=== PATIENT | male | born 1995 | race Caucasian/White ===

== ENCOUNTER 2018-08-10 16:49 | Outpatient (REF) | payer MEDICARE, SELFPAY ==
[2018-08-10 22:00] LABS: Abs Immature Grans 0.04 k/cumm (0.0-0.09); Absolute Basophil Count 0.03 k/cumm (0.0-0.2); Absolute Eosinophil Count 0.16 k/cumm (0.0-0.7); Absolute Lymphocyte Count 2.64 k/cumm (1.2-3.4); Absolute Monocyte Count 0.82 k/cumm (0.11-0.7); Absolute Neutrophil Count 5.47 k/cumm (1.2-6.7); Basophils % 0.3; Eosinophils % 1.7; HCT 45.8 % (40.0-50.0); HGB 16.1 g/dL (13.5-17.5); Immature Grans % 0.4; Lymphocytes % 28.8; Mean Corp. HGB Concentration 35.2 g/dL (32.0-36.0); Mean Corpuscular Hemoglobin 32.7 pg (27.0-33.0); Mean Corpuscular Volume 92.9 fL (80-95); Mean Platelet Volume 10.4 fL (8.0-11.0); Neutrophils % 59.8; Platelet Count 275 x1000/uL (130-400); RBC 4.93 m/cumm (4.50-6.00); RBC Distribution Width 12.4 % (11.8-14.1); White Blood Cell Count 9.16 k/cumm (4.4-10.8)
[2018-08-10 22:54] LABS: ALT 21 U/L (12-78); AST 19 U/L (15-37); Albumin 4.5 g/dL (3.4-5.0); Alkaline Phosphatase 98 U/L (46-116); Anion Gap 12.7 mmol/L (3-11); BUN 8 mg/dL (7-18); Bilirubin, Total 0.4 mg/dL (0.2-1.0); CO2 27.3 mmol/L (21.0-32.0); CREATININE 1.06 mg/dL (0.70-1.30); Calcium 9.4 mg/dL (8.5-10.1); Chloride 100 mmol/L (98-107); Cholesterol 166 mg/dL (50-200); Glucose 91 mg/dL (70-100); HDL Cholesterol 32 mg/dL (40-60); LDL CHOLESTEROL 100 mg/dL (<100); Potassium 3.8 mmol/L (3.5-5.1); Sodium 140 mmol/L (136-145); Total Protein 8.2 g/dL (6.4-8.2); Triglyceride 295 mg/dL (30-150)
[2018-08-10 23:03] LABS: Lipase 114 U/L (73-393)
== END 2018-08-10 17:09 ==
LOC: NCHCN 16:49
PROVIDERS: PCP Specialist/Technologist Athletic Trainer; Visit Provider Specialist/Technologist Athletic Trainer
DX: R10.11 Right upper quadrant pain (principal); E78.89 Other lipoprotein metabolism disorders; Z68.27 Body mass index [BMI] 27.0-27.9, adult
CPT/HCPCS: 80053; 80061; 83690; 83721; 85025

== ENCOUNTER 2018-08-17 07:41 | Outpatient (CLI) | payer MEDICARE, OTHER, SELFPAY ==
--- NOTE | 2018-08-17 08:05 | DI.US_ITS ---
SYMPTOMS/DIAGNOSIS: RIGHT UPPER QUADRANT PAIN, R10.11 ABDOMINAL ULTRASOUND: The aorta is normal. The vena cava is normal. The liver is top limits of normal in size. The gallbladder is normal. There are no stones or ductal dilatation. The pancreas is poorly visualized. The spleen measures 12 cm in maximal diameter. The right kidney measures 10 x 4.9 x 4.8 cm, the left kidney 11.8 x 5.4 x 5.6 cm. There is no evidence of abdominal free fluid. SUMMARY: The liver and spleen are somewhat enlarged. Note is made of nonvisualization of the pancreas. The study is otherwise unremarkable.
== END 2018-08-17 08:01 ==
PROVIDERS: PCP Specialist/Technologist Athletic Trainer; Visit Provider Specialist/Technologist Athletic Trainer
DX: R10.11 Right upper quadrant pain (principal); E16.2 Hypoglycemia, unspecified
CPT/HCPCS: 76700

== ENCOUNTER 2022-12-31 17:23 | Outpatient (REF) | payer MEDICARE, SELFPAY ==
[2022-12-31 20:40] LABS: ALT 29 U/L (16-63); AST 19 U/L (15-37); Albumin 4.6 g/dL (3.4-5.0); Alkaline Phosphatase 90 U/L (46-116); Anion Gap 7.4 mmol/L (3-11); BUN 12 mg/dL (7-18); Bilirubin, Total 0.6 mg/dL (0.2-1.0); CO2 29.6 mmol/L (21.0-32.0); Calcium 9.6 mg/dL (8.5-10.1); Calculated LDL 121 mg/dL (<100); Chloride 105 mmol/L (98-107); Cholesterol 193 mg/dL (<200); Estimated GFR 105.79 (mL/min/1.73m2); Glucose 102 mg/dL (74-106); HDL Cholesterol 40 mg/dL (40-60); Potassium 4.2 mmol/L (3.5-5.1); Sodium 142 mmol/L (136-145); Total Protein 8.3 g/dL (6.4-8.2); Triglyceride 164 mg/dL (<150)
== END 2022-12-31 17:24 | disposition home or self-care (01) ==
LOC: NCHCN 17:23
PROVIDERS: PCP Specialist/Technologist Athletic Trainer; Visit Provider Physician Assistant
DX: E66.8 Other obesity (principal)
CPT/HCPCS: 80053; 80061

== ENCOUNTER 2023-07-04 12:53 | Emergency (ER) | payer MEDICARE, SELFPAY ==
[2023-07-04 12:56] VITALS: BP 123/83; PULSE 84; RESP 16; TEMP 37.1; O2SAT 99
--- NOTE | 2023-07-04 14:19 | ED.GENADUL_ITS ---
Discharge Plan Disposition Patient Disposition: Home Condition: Good Discharge Details Clinical Impression: Acute ear pain Primary Care Provider: Issac Olson ED Provider: Marleni Wolff Home Meds and New Rx's Prescriptions: Continued finasteride 1 mg Tablet 1 mg PO DAILY Discharge Instructions Additional Instructions: Both of your ears are very clean and I do not see any foreign body or evidence of trauma. The piece of broken off Q-tip likely fell out at some point. Please follow-up with primary care as needed or if your pain persist over 2 weeks. If you develop any new or worsening symptoms please seek care urgently once again. Referrals: Issac Olson [Primary Care Provider] - Discharge Data Discharge Date/Time-TO BE ENTERED AT DEPARTURE: 07/04/23 14:31 Medical Decision Making Patient is a pleasant 27 year old male, brought in by mom, with c/c of q-tip broken in right ear a few days ago. Concerned that a piece remains. No fevers/chills, URI symptoms. On exam, he appears nontoxic, bilateral ear canals are clear with no FB, TM normal. Discussed with patient. Discussed how to clean the ear. Advised fu with PCP. All of their questions and concerns were addressed, they are in agreement iwth this plan. HPI General Date/Time Provider Initiated Documentation: 07/04/23 14:18 . Limitations to Documentation: no limitations . Information obtained by: patient, family and RN notes reviewed . History of Present Illness 27 year old M presents to the emergency department with the chief complaint of broke q-tip in right ear, described as mild, with intensity rated at 2. and is localized to the face (right ear). Patient reports no radiation. Patient started experiencing this day(s) and it has been constant. No relieving factors improve symptom(s), No exacerbating factors reported . Patient notes no other symptoms.. Patient did receive the following treatments prior to arrival, none Related Data Home Medications Medication Instructions Recorded Confirmed finasteride 1 mg tablet 1 mg PO DAILY 07/04/23 07/04/23 Allergies Allergy/AdvReac Type Severity Reaction Status Date / Time tetracycline Allergy Unknown Unverified 11/06/14 15:06 peanut AdvReac Anaphylaxis Unverified 07/04/23 12:58 Deodorants AdvReac Unknown Rash Uncoded 12/19/13 14:59 General Stated Complaint: EarProblem TORIN: 4 Review of Systems Constitutional Constitutional: Reports as per HPI, Denies chills, Denies fever(s) and Denies headache(s) ENT Ears, Nose, Mouth, and Throat: Denies dental pain, Denies ear discharge, Reports otalgia, Denies facial pain, Denies headache(s), Denies hearing loss and Denies sore throat Cardiovascular Cardiovascular: Reports as per HPI Respiratory Respiratory: Reports as per HPI and Denies cough Neurologic Neurologic: Denies headache(s) PFSH All Active Problems (Updated 07/04/23 @ 14:27 by JOELLEN Pino) Acute ear pain (Acute) Social History Smoking/Tobacco Use Status: Never Smoking risk assessment performed?: Yes Alcohol Intake: never Drug use: Never Substance use type: does not use Housing: house Do you feel safe at home: Yes Do you feel safe in your relationship?: Yes Exam Const General: cooperative, healthy appearing, comfortable and no acute distress Nutritional Appearance: average body habitus and well nourished Orientation: alert and awake [facility] Head: normal to inspection Ears: hearing grossly normal bilaterally, external ears normal and TM's normal bilaterally Face and sinus: normal facial exam, sinuses nontender and face symmetric Eyes General: appearance normal, both eyes and all related structures Resp Effort & Inspection: normal respiratory effort, able to speak in complete sentences and no respiratory distress Cardio Rate: regular rate Rhythm: regular rhythm Skin General skin exam: no rashes or lesions noted Neuro General: patient alert and patient awake Cognition: normal cognition Speech: speech normal Gait: normal gait Psych Appearance: grossly normal and well kempt Mental Status: mental status grossly normal Speech and Movement: speech and movement normal Course Vital Signs Vital signs: Vital Signs Temperature 37.1 C 07/04/23 12:56 Pulse 84 07/04/23 12:56 Respiratory Rate 16 07/04/23 12:56 Blood Pressure 123/83 07/04/23 12:56 Pulse Oximetry 99 07/04/23 12:56 Temperature 37.1 C 07/04/23 12:56 Temperature Source Skin 07/04/23 12:56 Pulse 84 07/04/23 12:56 Respiratory Rate 16 07/04/23 12:56 Blood Pressure 123/83 07/04/23 12:56 Blood Pressure Position Sitting 07/04/23 12:56 Pulse Oximetry 99 07/04/23 12:56 Oxygen Delivery Method Room Air 07/04/23 12:56 Oxygen Flow Rate 0 07/04/23 12:56 Pain Level 2 07/04/23 12:56
[2023-07-04 14:29] VITALS: BP 123/83; PULSE 84; RESP 16; TEMP 37.1; O2SAT 99
== END 2023-07-04 14:31 | disposition home or self-care (01) ==
PROVIDERS: Emergency Provider Physician Assistant; PCP Specialist/Technologist Athletic Trainer
DX: Z71.1 Person with feared health complaint in whom no diagnosis is made (principal)
CPT/HCPCS: 99281; 99282

== ENCOUNTER 2025-01-10 09:18 | Outpatient (REF) | payer MEDICARE, SELFPAY ==
[2025-01-10 19:57] LABS: ALT 36 U/L (16-63); AST 20 U/L (15-37); Albumin 4.5 g/dL (3.4-5.0); Alkaline Phosphatase 91 U/L (46-116); Anion Gap 6.5 mmol/L (3-11); BUN 10 mg/dL (7-18); Bilirubin, Total 0.4 mg/dL (0.2-1.0); CO2 28.5 mmol/L (21.0-32.0); Calcium 9.5 mg/dL (8.5-10.1); Calculated LDL 119 mg/dL (<100); Chloride 108 mmol/L (98-107); Cholesterol 199 mg/dL (<200); Estimated GFR 104.48 (mL/min/1.73m2); Glucose 100 mg/dL (74-106); HDL Cholesterol 45 mg/dL (>or=40); Potassium 4.7 mmol/L (3.5-5.1); Sodium 143 mmol/L (136-145); Total Protein 8.2 g/dL (6.4-8.2); Triglyceride 178 mg/dL (<150)
[2025-01-13 09:35] LABS: HIV-1/2 Ag & Ab Screen Negative (Negative)
[2025-01-14 11:28] LABS: Hepatitis C Ab w Rflx HCV PCR Negative (Negative)
== END 2025-01-10 09:19 | disposition home or self-care (01) ==
LOC: NCHCN 09:18
PROVIDERS: PCP Physician Assistant; Visit Provider Physician Assistant
DX: Z11.4 Encounter for screening for human immunodeficiency virus [HIV] (principal)
CPT/HCPCS: 80053; 80061; 86803; 87389

== ENCOUNTER 2025-03-20 01:06 | Outpatient (CLI) | payer MEDICARE, SELFPAY ==
--- NOTE | 2025-03-20 07:15 | DI.RAD_ITS ---
Exam(s) XR FOOT RT COMPLETE EXAM: XR FOOT RT COMPLETE CLINICAL HISTORY: Right foot pain,m79.671,flat foot,m21.42. TECHNIQUE: 2D digital imaging was performed of the right foot. Three images were obtained. AP, obl ique and lateral views were obtained. COMPARISON: No exams were available for comparison FINDINGS: BONES: No acute fracture is present. No bony destructive lesion is seen. JOINTS: No dislocation present. The joint spaces are well maintained. SOFT TISSUE: Normal. IMPRESSION: Unremarkable radiographs of the right foot. DATA REPOSITORY: RADIATION DOSE DELIVERED:
--- NOTE | 2025-03-20 07:15 | DI.RAD_ITS ---
Exam(s) XR FOOT LT COMPLETE EXAM: XR FOOT LT COMPLETE CLINICAL HISTORY: Left foot pain,m79.672,flat foot,m21.42. TECHNIQUE: 2D digital imaging was performed of the left foot. Three images were obtained. AP, obli que and lateral views were obtained. COMPARISON: No exams were available for comparison FINDINGS: BONES: No acute fracture is present. No bony destructive lesion is seen. JOINTS: No dislocation present. The joint spaces are well maintained. SOFT TISSUE: Normal. IMPRESSION: No acute abnormality. DATA REPOSITORY: RADIATION DOSE DELIVERED:
== END 2025-03-20 01:26 ==
LOC: DI 01:06
PROVIDERS: PCP Physician Assistant; Visit Provider Podiatrist
DX: M79.672 Pain in left foot (principal); M21.42 Flat foot [pes planus] (acquired), left foot; M79.671 Pain in right foot; M21.41 Flat foot [pes planus] (acquired), right foot
CPT/HCPCS: 99213; 73630